=== PATIENT | female | born 1990 | race Caucasian/White ===

== ENCOUNTER 2016-10-21 20:31 | Emergency (ER) | payer OTHER ==
[2016-10-21] MEDS ORDERED: SODIUM CHLORIDE 0.9% 1,000 ML IV STA (22:24)
[2016-10-21] MEDS ORDERED: KETOROLAC 30 MG/ML 1 ML VIAL IVP STA (22:24)
--- NOTE | 2016-10-21 23:16 | US ---
EXAM: US Abdomen Limited, Right Upper Quadrant CLINICAL HISTORY: Reason: Pain TECHNIQUE: Real-time ultrasound of the right upper quadrant with image documentation. COMPARISON: None. FINDINGS: Liver: Unremarkable. No mass. No intrahepatic bile duct dilation. Gallbladder: Unremarkable. No gallstones. Common bile duct: Unremarkable as visualized. Measures up to 0.3 cm in diameter. No stones. Pancreas: Unremarkable as visualized. Right kidney: Measures 9.8 x 4.2 x 3.4 cm. No stones. No solid mass. No hydronephrosis. IMPRESSION: No acute findings.
[2016-10-21 23:25] LABS: Appearance,Urine Clear (Clear); Bacteria,Urine Rare /hpf; Bilirubin,Urine Negative (Negative); Glucose,Urine (UA) Negative (Negative); Ketones,Urine 2+ (Negative); Leukocyte Esterase,Urine Negative (Negative); Mucus,Urine Occasional /hpf; Nitrite,Urine Negative (Negative); Particle Count 3897; Protein,Urine Negative (Negative); RBC,Urine 3 /hpf (0-5); Specific Gravity,Urine 1.022 (1.001-1.035); Squamous Epithelial Cell,Urine 1 /hpf (0-4); UA Billing (MACRO vs. MICRO) MICRO; WBC,Urine <1 /hpf (0-5)
[2016-10-21 23:28] LABS: Basophils % (A) 1 %; CHCM 33.8; Eosinophils # (A) 0.2 k/uL (0-0.7); Eosinophils % (A) 3 %; HCT 35.3 % (34.0-46.0); HDW 2.29; HGB 12.1 gm/dL (11.4-16.0); Luc # (Auto) 0.13; Luc % (Auto) 2; Lymphocytes # (A) 1.7 k/uL (1.0-4.8); Lymphocytes % (A) 24 %; MCH 31.6 pg (25.0-35.0); MCHC 34.3 g/dL (31.0-37.0); MCV 92.1 fL (80.0-100.0); Mean Platelet Volume 7.6; Monocytes # (A) 0.5 k/uL (0-1.0); Monocytes % (A) 7 %; Neutrophils # (A) 4.5 k/uL (1.3-7.7); Neutrophils % (A) 64 %; RBC 3.84 m/uL (3.80-5.40); WBC (Perox) 6.66
[2016-10-21 23:45] VITALS: BP 119/75; PULSE 70; RESP 16; TEMP 98.5
[2016-10-21 23:45] LABS: ALT 25 U/L (9-52); AST 15 U/L (14-36); Alkaline Phosphatase 52 U/L (38-126); Amylase 35 U/L (30-110); Anion Gap 11 mmol/L; Blood Urea Nitrogen 11 mg/dL (7-17); Calcium 9.5 mg/dL (8.4-10.2); Carbon Dioxide 25 mmol/L (22-30); Chloride 106 mmol/L (98-107); Glucose 88 mg/dL (74-99); Non-African American GFR(MDRD) >60 (>60 ml/min/1.73 sqM); Potassium 3.9 mmol/L (3.5-5.1); Sodium 142 mmol/L (137-145); Total Bilirubin 0.7 mg/dL (0.2-1.3); Total Protein 6.6 g/dL (6.3-8.2)
--- NOTE | 2016-10-22 00:01 | ED ---
Abdominal Pain HPI - General Chief Complaint: Abdominal Pain Stated Complaint: abdominal pain Time Seen by Provider: 10/21/16 21:58 Source: patient Mode of arrival: ambulatory Limitations: no limitations - Related Data Home Medications Medication Instructions Recorded Confirmed Acetaminophen/Pamabrom [Midol 2 tab PO DAILY PRN 10/21/16 10/21/16 [place]] Previous Rx's Medication Instructions Recorded Famotidine [Pepcid] 20 mg PO BID #20 tablet 10/22/16 Allergies Allergy/AdvReac Type Severity Reaction Status Date / Time No Known Allergies Allergy Verified 10/21/16 22:03 Review of Systems ROS Statement: Those systems with pertinent positive or pertinent negative responses have been documented in the HPI. ROS Other: All systems not noted in ROS Statement are negative. Past Medical History Past Medical History: No Reported History History of Any Multi-Drug Resistant Organisms: None Reported Past Surgical History: No Surgical Hx Reported Past Psychological History: Anxiety Smoking Status: Never smoker Past Alcohol Use History: Rare Past Drug Use History: None Reported General Exam Limitations: no limitations Course Vital Signs 10/21/16 10/21/16 20:36 23:39 Temperature 99.1 F 98.5 F Pulse Rate 97 70 Respiratory 18 16 Rate Blood Pressure 120/72 119/75 O2 Sat by Pulse 100 100 Oximetry Medical Decision Making - Lab Data Result diagrams: 10/21/16 23:20 10/21/16 23:20 Lab Results 10/21/16 10/21/16 10/21/16 Range/Units 23:16 23:16 23:20 WBC (3.8-10.6) k/uL RBC (3.80-5.40) m/uL Hgb (11.4-16.0) gm/dL Hct (34.0-46.0) % MCV (80.0-100.0) fL MCH (25.0-35.0) pg MCHC (31.0-37.0) g/dL RDW (11.5-15.5) % Plt Count (150-450) k/uL Neutrophils % % Lymphocytes % % Monocytes % % Eosinophils % % Basophils % % Neutrophils # (1.3-7.7) k/uL Lymphocytes # (1.0-4.8) k/uL Monocytes # (0-1.0) k/uL Eosinophils # (0-0.7) k/uL Basophils # (0-0.2) k/uL Sodium 142 (137-145) mmol/L Potassium 3.9 (3.5-5.1) mmol/L Chloride 106 (98-107) mmol/L Carbon Dioxide 25 (22-30) mmol/L Anion Gap 11 mmol/L BUN 11 (7-17) mg/dL Creatinine 0.70 (0.52-1.04) mg/dL Est GFR (MDRD) Af Amer >60 (>60 ml/min/1.73 sqM) Est GFR (MDRD) Non-Af >60 (>60 ml/min/1.73 sqM) Glucose 88 (74-99) mg/dL Calcium 9.5 (8.4-10.2) mg/dL Total Bilirubin 0.7 (0.2-1.3) mg/dL AST 15 (14-36) U/L ALT 25 (9-52) U/L Alkaline Phosphatase 52 (38-126) U/L Total Protein 6.6 (6.3-8.2) g/dL Albumin 4.1 (3.5-5.0) g/dL Amylase 35 (30-110) U/L Lipase 131 (23-300) U/L Urine Color Yellow Urine Appearance Clear (Clear) Urine pH 5.0 (5.0-8.0) Ur Specific [place] 1.022 (1.001-1.035) Urine Protein Negative (Negative) Urine Glucose (UA) Negative (Negative) Urine Ketones 2+ H (Negative) Urine Blood Moderate H (Negative) Urine Nitrite Negative (Negative) Urine Bilirubin Negative (Negative) Urine Urobilinogen 2.0 (<2.0) mg/dL Ur Leukocyte Esterase Negative (Negative) Urine RBC 3 (0-5) /hpf Urine WBC <1 (0-5) /hpf Ur Squamous Epith Cells 1 (0-4) /hpf Urine Bacteria Rare H (None) /hpf Urine Mucus Occasional H (None) /hpf Urine HCG, Qual Not Detected (Not Detectd) 10/21/16 Range/Units 23:20 WBC 7.0 (3.8-10.6) k/uL RBC 3.84 (3.80-5.40) m/uL Hgb 12.1 (11.4-16.0) gm/dL Hct 35.3 (34.0-46.0) % MCV 92.1 (80.0-100.0) fL MCH 31.6 (25.0-35.0) pg MCHC 34.3 (31.0-37.0) g/dL RDW 13.0 (11.5-15.5) % Plt Count 185 (150-450) k/uL Neutrophils % 64 % Lymphocytes % 24 % Monocytes % 7 % Eosinophils % 3 % Basophils % 1 % Neutrophils # 4.5 (1.3-7.7) k/uL Lymphocytes # 1.7 (1.0-4.8) k/uL Monocytes # 0.5 (0-1.0) k/uL Eosinophils # 0.2 (0-0.7) k/uL Basophils # 0.0 (0-0.2) k/uL Sodium (137-145) mmol/L Potassium (3.5-5.1) mmol/L Chloride (98-107) mmol/L Carbon Dioxide (22-30) mmol/L Anion Gap mmol/L BUN (7-17) mg/dL Creatinine (0.52-1.04) mg/dL Est GFR (MDRD) Af Amer (>60 ml/min/1.73 sqM) Est GFR (MDRD) Non-Af (>60 ml/min/1.73 sqM) Glucose (74-99) mg/dL Calcium (8.4-10.2) mg/dL Total Bilirubin (0.2-1.3) mg/dL AST (14-36) U/L ALT (9-52) U/L Alkaline Phosphatase (38-126) U/L Total Protein (6.3-8.2) g/dL Albumin (3.5-5.0) g/dL Amylase (30-110) U/L Lipase (23-300) U/L Urine Color Urine Appearance (Clear) Urine pH (5.0-8.0) Ur Specific [place] (1.001-1.035) Urine Protein (Negative) Urine Glucose (UA) (Negative) Urine Ketones (Negative) Urine Blood (Negative) Urine Nitrite (Negative) Urine Bilirubin (Negative) Urine Urobilinogen (<2.0) mg/dL Ur Leukocyte Esterase (Negative) Urine RBC (0-5) /hpf Urine WBC (0-5) /hpf Ur Squamous Epith Cells (0-4) /hpf Urine Bacteria (None) /hpf Urine Mucus (None) /hpf Urine HCG, Qual (Not Detectd) Disposition Clinical Impression: Abdominal pain Disposition: HOME SELF-CARE Condition: Good Instructions: Abdominal Pain (ED) Additional Instructions: Patient advised to follow-up with her primary care provider and GI specialist. Return to the emergency department if any alarming signs or symptoms occur. Prescriptions: Famotidine [Pepcid] 20 mg PO BID #20 tablet Referrals: Chris Martinez MD [Primary Care Provider] - 1-2 days Time of Disposition: 00:01
== END 2016-10-22 00:33 | disposition home or self-care (01) ==
LOC: EC 20:31
DX: R10.9 Unspecified abdominal pain (principal)
CPT/HCPCS: 36415; 80053; 82150; 83690; 85025; 81001; 81025; 76705; 99284; 96374; 96361; J1885

== ENCOUNTER 2016-11-25 12:42 | Emergency (ER) | payer OTHER ==
[2016-11-25 12:46] VITALS: RESP 20
[2016-11-25 15:00] LABS: Basophils % (A) 0 %; CH 32.1; Eosinophils # (A) 0.1 k/uL (0-0.7); Eosinophils % (A) 1 %; HCT 41.6 % (34.0-46.0); HDW 2.33; HGB 13.8 gm/dL (11.4-16.0); Luc # (Auto) 0.13; Luc % (Auto) 2; Lymphocytes # (A) 1.1 k/uL (1.0-4.8); Lymphocytes % (A) 13 %; MCH 31.5 pg (25.0-35.0); MCHC 33.3 g/dL (31.0-37.0); MCV 94.7 fL (80.0-100.0); Mean Platelet Volume 7.9; Monocytes # (A) 0.4 k/uL (0-1.0); Monocytes % (A) 5 %; Neutrophils # (A) 6.6 k/uL (1.3-7.7); Neutrophils % (A) 79 %; RBC 4.39 m/uL (3.80-5.40); WBC 8.3 k/uL (3.8-10.6); WBC (Perox) 7.97
[2016-11-25 15:10] LABS: ALT 23 U/L (9-52); AST 20 U/L (14-36); Alkaline Phosphatase 61 U/L (38-126); Amylase 39 U/L (30-110); Anion Gap 15 mmol/L; Blood Urea Nitrogen 11 mg/dL (7-17); Calcium 9.6 mg/dL (8.4-10.2); Carbon Dioxide 22 mmol/L (22-30); Chloride 102 mmol/L (98-107); Glucose 66 mg/dL (74-99); Non-African American GFR(MDRD) >60 (>60 ml/min/1.73 sqM); Potassium 4.5 mmol/L (3.5-5.1); Sodium 139 mmol/L (137-145); Total Bilirubin 0.9 mg/dL (0.2-1.3); Total Protein 7.8 g/dL (6.3-8.2)
[2016-11-25 15:18] LABS: Appearance,Urine Clear (Clear); Bilirubin,Urine Negative (Negative); Glucose,Urine (UA) Negative (Negative); Ketones,Urine 3+ (Negative); Leukocyte Esterase,Urine Negative (Negative); Mucus,Urine Rare /hpf; Nitrite,Urine Negative (Negative); Particle Count 1760; Protein,Urine Negative (Negative); RBC,Urine 4 /hpf (0-5); Specific Gravity,Urine 1.005 (1.001-1.035); Squamous Epithelial Cell,Urine <1 /hpf (0-4); UA Billing (MACRO vs. MICRO) MICRO; Urobilinogen,Urine <2.0 mg/dL (<2.0); WBC,Urine <1 /hpf (0-5)
--- NOTE | 2016-11-25 15:41 | XR ---
EXAMINATION TYPE: XR KUB DATE OF EXAM: 11/25/2016 3:34 PM CLINICAL HISTORY: Abdominal pain TECHNIQUE: Single upright image of the abdomen is obtained. COMPARISON: 09/19/2014. FINDINGS: Scattered gas is seen in non-distended small bowel loops. Gas and fecal material is seen in non-distended colon. The liver is elongated and may relate to Jhoana's lobe or true hepatomegaly. No evidence of pneumoperitoneum. The lung bases are clear and the osseous structures are intact. IMPRESSION: Nonobstructive bowel gas pattern.
--- NOTE | 2016-11-25 16:12 | ED ---
Abdominal Pain HPI - General Chief Complaint: Abdominal Pain Stated Complaint: Abd Pain Time Seen by Provider: 11/25/16 14:41 Source: patient, RN notes reviewed, old records reviewed Mode of arrival: ambulatory Limitations: no limitations - History of Present Illness Initial Comments: Physically 25-year-old female chief complaint of constipation-like symptoms for the past month and a half. Patient reports that she has been having to use stool softeners to have a bowel movement as well as using magnesium citrate. Patient reports she is magnesium citrate yesterday, did have a bowel movement earlier today. She reports that she is passing gas but has not passed anything today. Patient states that she had an episode of vomiting which she relates to drinking the magnesium citrate. Patient states that she's had no blood in her emesis today. Denies patient reports that she had a slight fever yesterday, but did take some Motrin Tylenol and is gone at this time. Denies any other symptoms or complaints to cause a fever. Patient reports that yesterday she was in such severe abdominal pain before having a bowel movement, she thought that she perforated her bowel. - Related Data Home Medications Medication Instructions Recorded Confirmed Acetaminophen Tab [Tylenol Tab] 650 mg PO Q6H PRN 11/25/16 11/25/16 Previous Rx's Medication Instructions Recorded Polyethylene Glycol 3350 [Miralax] 17 gm PO DAILY #255 gm 11/25/16 Allergies Allergy/AdvReac Type Severity Reaction Status Date / Time No Known Allergies Allergy Verified 11/25/16 14:37 Review of Systems ROS Statement: Those systems with pertinent positive or pertinent negative responses have been documented in the HPI. ROS Other: All systems not noted in ROS Statement are negative. Past Medical History Past Medical History: No Reported History History of Any Multi-Drug Resistant Organisms: None Reported Past Surgical History: No Surgical Hx Reported Past Psychological History: Anxiety Smoking Status: Never smoker Past Alcohol Use History: Rare Past Drug Use History: None Reported General Exam - General Exam Comments Initial Comments: Well-appearing 25-year-old female. No acute distress. Limitations: no limitations General appearance: alert, in no apparent distress Head exam: Present: atraumatic, normocephalic, normal inspection Eye exam: Present: normal appearance, PERRL, EOMI. Absent: scleral icterus, conjunctival injection, periorbital swelling ENT exam: Present: normal exam, mucous membranes moist Neck exam: Present: normal inspection. Absent: tenderness, meningismus, lymphadenopathy Respiratory exam: Present: normal lung sounds bilaterally. Absent: respiratory distress, wheezes, rales, rhonchi, stridor Cardiovascular Exam: Present: regular rate, normal rhythm, normal heart sounds. Absent: systolic murmur, diastolic murmur, rubs, gallop, clicks GI/Abdominal exam: Present: soft, tenderness (minimal tenderness over left lower quadrant. ), normal bowel sounds. Absent: distended, guarding, rebound, rigid Extremities exam: Present: normal inspection, full ROM, normal capillary refill. Absent: tenderness, pedal edema, joint swelling, calf tenderness Back exam: Present: normal inspection Neurological exam: Present: alert, oriented X3, CN II-XII intact Psychiatric exam: Present: normal affect, normal mood Skin exam: Present: warm, dry, intact, normal color. Absent: rash Course Vital Signs 11/25/16 11/25/16 11/25/16 12:45 14:28 16:46 Temperature 98.5 F 97.0 F L 97.7 F Pulse Rate 94 84 83 Respiratory 20 20 20 Rate Blood Pressure 127/76 111/67 108/59 O2 Sat by Pulse 99 100 99 Oximetry Medical Decision Making - Medical Decision Making Physically 25-year-old female chief complaint of constipation-like symptoms for the past month and a half. Patient reports that she has been having to use stool softeners to have a bowel movement as well as using magnesium citrate. Patient reports she is magnesium citrate yesterday, did have a bowel movement earlier today. She reports that she is passing gas but has not passed anything today. Patient states that she had an episode of vomiting which she relates to drinking the magnesium citrate. On further questioning patient states that she saw her PCP and was told she has irritible bowel syndrome. Patient reports she was concerned of the severe pain and history of constipation, that she became so full of stool that she perforated her bowel beofre having a bowel movement. On exam, she has no rebound or peritoneal signs. Patient lab work was reviewed, negative for any acute process. Patient KUB has no free air, normal bowel gas. No significant stool burden. Patient was advised she has no bowel perforation signs and she is stable. Patient has been advised that she needs to resume a diet, but to start miralax each day. Discussed follow up with PCP and GI. REturn parameters discussed. - Lab Data Result diagrams: 11/25/16 14:43 11/25/16 14:43 Lab Results 11/25/16 11/25/16 11/25/16 Range/Units 14:43 14:43 14:50 WBC 8.3 (3.8-10.6) k/uL RBC 4.39 (3.80-5.40) m/uL Hgb 13.8 (11.4-16.0) gm/dL Hct 41.6 (34.0-46.0) % MCV 94.7 (80.0-100.0) fL MCH 31.5 (25.0-35.0) pg MCHC 33.3 (31.0-37.0) g/dL RDW 14.0 (11.5-15.5) % Plt Count 214 (150-450) k/uL Neutrophils % 79 % Lymphocytes % 13 % Monocytes % 5 % Eosinophils % 1 % Basophils % 0 % Neutrophils # 6.6 (1.3-7.7) k/uL Lymphocytes # 1.1 (1.0-4.8) k/uL Monocytes # 0.4 (0-1.0) k/uL Eosinophils # 0.1 (0-0.7) k/uL Basophils # 0.0 (0-0.2) k/uL Sodium 139 (137-145) mmol/L Potassium 4.5 (3.5-5.1) mmol/L Chloride 102 (98-107) mmol/L Carbon Dioxide 22 (22-30) mmol/L Anion Gap 15 mmol/L BUN 11 (7-17) mg/dL Creatinine 0.74 (0.52-1.04) mg/dL Est GFR (MDRD) Af Amer >60 (>60 ml/min/1.73 sqM) Est GFR (MDRD) Non-Af >60 (>60 ml/min/1.73 sqM) Glucose 66 L (74-99) mg/dL Calcium 9.6 (8.4-10.2) mg/dL Total Bilirubin 0.9 (0.2-1.3) mg/dL AST 20 (14-36) U/L ALT 23 (9-52) U/L Alkaline Phosphatase 61 (38-126) U/L Total Protein 7.8 (6.3-8.2) g/dL Albumin 4.7 (3.5-5.0) g/dL Amylase 39 (30-110) U/L Lipase 114 (23-300) U/L Urine Color Urine Appearance (Clear) Urine pH (5.0-8.0) Ur Specific [place] (1.001-1.035) Urine Protein (Negative) Urine Glucose (UA) (Negative) Urine Ketones (Negative) Urine Blood (Negative) Urine Nitrite (Negative) Urine Bilirubin (Negative) Urine Urobilinogen (<2.0) mg/dL Ur Leukocyte Esterase (Negative) Urine RBC (0-5) /hpf Urine WBC (0-5) /hpf Ur Squamous Epith Cells (0-4) /hpf Urine Mucus (None) /hpf Urine HCG, Qual Not Detected (Not Detectd) 11/25/16 Range/Units 14:50 WBC (3.8-10.6) k/uL RBC (3.80-5.40) m/uL Hgb (11.4-16.0) gm/dL Hct (34.0-46.0) % MCV (80.0-100.0) fL MCH (25.0-35.0) pg MCHC (31.0-37.0) g/dL RDW (11.5-15.5) % Plt Count (150-450) k/uL Neutrophils % % Lymphocytes % % Monocytes % % Eosinophils % % Basophils % % Neutrophils # (1.3-7.7) k/uL Lymphocytes # (1.0-4.8) k/uL Monocytes # (0-1.0) k/uL Eosinophils # (0-0.7) k/uL Basophils # (0-0.2) k/uL Sodium (137-145) mmol/L Potassium (3.5-5.1) mmol/L Chloride (98-107) mmol/L Carbon Dioxide (22-30) mmol/L Anion Gap mmol/L BUN (7-17) mg/dL Creatinine (0.52-1.04) mg/dL Est GFR (MDRD) Af Amer (>60 ml/min/1.73 sqM) Est GFR (MDRD) Non-Af (>60 ml/min/1.73 sqM) Glucose (74-99) mg/dL Calcium (8.4-10.2) mg/dL Total Bilirubin (0.2-1.3) mg/dL AST (14-36) U/L ALT (9-52) U/L Alkaline Phosphatase (38-126) U/L Total Protein (6.3-8.2) g/dL Albumin (3.5-5.0) g/dL Amylase (30-110) U/L Lipase (23-300) U/L Urine Color Light Yellow Urine Appearance Clear (Clear) Urine pH 5.0 (5.0-8.0) Ur Specific [place] 1.005 (1.001-1.035) Urine Protein Negative (Negative) Urine Glucose (UA) Negative (Negative) Urine Ketones 3+ H (Negative) Urine Blood Moderate H (Negative) Urine Nitrite Negative (Negative) Urine Bilirubin Negative (Negative) Urine Urobilinogen <2.0 (<2.0) mg/dL Ur Leukocyte Esterase Negative (Negative) Urine RBC 4 (0-5) /hpf Urine WBC <1 (0-5) /hpf Ur Squamous Epith Cells <1 (0-4) /hpf Urine Mucus Rare H (None) /hpf Urine HCG, Qual (Not Detectd) - Radiology Data Radiology results: report reviewed KUB shows no acute abdominal pattern. Disposition Clinical Impression: History of irritable bowel syndrome, Constipation Disposition: HOME SELF-CARE Condition: Good Instructions: Irritable Bowel Syndrome (ED) Additional Instructions: Patient is follow-up with primary care provider. Take medications as prescribed. Return to emergency department if any alarming signs or symptoms occur. Prescriptions: Polyethylene Glycol 3350 [Miralax] 17 gm PO DAILY #255 gm Referrals: Chris Martinez MD [Primary Care Provider] - 1-2 days Rafael Nieves MD [STAFF PHYSICIAN] - 1-2 days Time of Disposition: 16:48
[2016-11-25 16:47] VITALS: BP 108/59; PULSE 83; TEMP 97.7
== END 2016-11-25 17:09 | disposition home or self-care (01) ==
LOC: EC 12:42
DX: K59.00 Constipation, unspecified (principal); K58.9 Irritable bowel syndrome, unspecified; R11.10 Vomiting, unspecified
CPT/HCPCS: 36415; 74000; 80053; 81001; 81025; 82150; 83690; 85025; 99284

== ENCOUNTER → 2022-08-05 | Outpatient (CLI) | payer BC ==
[2022-08-05 15:51] LABS: HCT 33.9 % (37.2-46.3); HGB 11.1 g/dL (12.0-15.0); MCH 32.4 pg (27.0-32.0); MCHC 32.7 g/dL (32.0-37.0); MCV 98.8 fL (80.0-97.0); Mean Platelet Volume 10.6 fL (9.5-12.2); NRBC Per 100 WBC 0 /100 WBCS (0.0-0.0); Platelet Count 188 X 10*3/uL (140-440); RBC 3.43 X 10*6/uL (4.10-5.20); RDW 14.5 % (11.5-14.5); WBC 9.47 X 10*3/uL (4.50-10.00)
== END | disposition home or self-care (01) ==
LOC: LABWHC1 09:25
PROVIDERS: ATTEND Obstetrics & Gynecology
DX: Z34.02 Encounter for supervision of normal first pregnancy, second trimester (principal); Z3A.00 Weeks of gestation of pregnancy not specified
CPT/HCPCS: 36415; 82950; 85027

== ENCOUNTER 2022-10-14 11:01 | Inpatient (IN) | payer BC ==
--- NOTE | 2022-10-14 13:00 | US ---
EXAMINATION TYPE: US OB BPP wo non-stress DATE OF EXAM: 10/14/2022 COMPARISON: NONE CLINICAL INDICATION: Female, 31 years old with history of oligo, failed NST in office; failed NST TECHNIQUE: Transabdominal (TA). Scoring by the consumer affairs director during real-time assessment. FINDINGS: BPP PARAMETERS: PRESENTATION: Vertex LIE: Longitudinal?? HEART RATE: 140 bpm RHYTHM: Normal CECILIO: 28.7cm (per patient: CECILIO measured as 36cm in office today, was 24 cm 2 weeks ago) DIAPHRAGM IMAGED: Yes BPP SCORIN. Breathin (1 episode of breathing of 30 second duration in 30 minutes of scanning time) 2. Movement: 2 (at least 3 discrete body movements in 30 minutes) 3. Tone: 2 (1 episode of active flexion/extension of limb) 4. CECILIO: 2 (CECILIO index > 5cm) IMPRESSION: TOTAL SCORE: 6 / 8
[2022-10-14] MEDS: BETAMET ACET-BETAMETH SOD PHOS 6 MG/ML MDV IM SCH (13:14)
--- NOTE | 2022-10-14 17:55 | P.HPOB ---
History of Present Illness H&P Date: 10/14/22 Chief Complaint: Polyhydramnios, equivocal testing This patient is a pleasant 31-year-old 1 para 0 female estimated date of confinement 11/12/2022 estimated gestational age 35-6/7 weeks who presents to labor and delivery from my office for evaluation of polyhydramnios. 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 Father the baby does have cystic fibrosis. Patient was sent to maternal- medicine for consultation and at that time the level III ultrasound was normal, the mother's tested and she is not a carrier cystic fibrosis. Also the patient is a carrier of SMA although the father is not a carrier. Maternal medicine recommended serial growth ultrasounds and testing. Patient had an ultrasound done today in the office that showed the amniotic fluid index of 36. I sent the patient to labor and delivery and nonstress test was done which was reassuring but not classically reactive. Biophysical profile was 6 out of 10 with no breathing movement. This time I contacted Dr. Swan the maternal medicine physician and we discussed the clinical case. He recommended admitting this patient for steroid administration, continuous monitoring and repeat biophysical profile tomorrow morning. He recommended if testing continued to be equivocal to proceed with delivery at that time. Review of Systems Genitourinary: Reports Menstruation: Reports amenorrhea Past Medical History Past Medical History: No Reported History History of Any Multi-Drug Resistant Organisms: None Reported Past Surgical History: No Surgical Hx Reported Past Anesthesia/Blood Transfusion Reactions: No Reported Reaction Past Psychological History: Anxiety Smoking Status: Never smoker Past Alcohol Use History: Rare Past Drug Use History: None Reported Medications and Allergies Home Medications Medication Instructions Recorded Confirmed Type Doxylamine Succinate [Unisom] 1 tablet PO DAILY 07/29/22 07/29/22 History Vit No.179/Iron/Folic 1 tablet PO DAILY 07/29/22 07/29/22 History [ Tablet] Allergies Allergy/AdvReac Type Severity Reaction Status Date / Time No Known Allergies Allergy Verified 07/29/22 18:00 Exam Vital Signs Temp Pulse Resp BP Pulse Ox 10/14/22 13:06 97.4 F L 82 16 135/89 100 Intake and Output 10/14/22 10/14/22 10/14/22 06:59 14:59 22:59 Other: # Voids 1 Weight 70.307 kg - OBG Physical Exam Abdomen: bowel sounds normal, no diffuse tenderness, no bruit present, no guarding noted, no hepatomegaly, no splenomegaly, no mass Uterus: enlarged Results labs show she is A positive, rubella immune, RPR nonreactive, hepatitis B and C nonreactive, HIV is nonreactive, Glucola was 113, level III ultrasound per maternal- medicine was normal. Assessment and Plan Assessment: This is a pleasant 31-year-old 1 para 0 female estimated gestational age 35-6/7 weeks gestation with polyhydramnios and equivocal antepartum testing. Per consultation with maternal- medicine, plan is to admit this patient for continuous monitoring, Celestone administration and repeat biophysical profile tomorrow morning. Plan at that time is if the testing is still equivocal to proceed with delivery. Maternal medicine said not to wait for the second Celestone dose if that is the case. If testing is all reassuring, patient be discharged home after her second Celestone dose follow-up maternal- medicine on Monday. I had a long discussion with the patient and her as far as this plan. They understand our clinical concerns and management. (1) 35 to 36 weeks gestation of Current Visit: Yes Status: Acute Code(s): BHK4989 - SNOMED Code(s): 894401017 (2) Abnormal test Current Visit: Yes Status: Acute Code(s): O28.9 - UNSP ABNORMAL FINDINGS ON SCREENING OF MOTHER SNOMED Code(s): 854171233 (3) Polyhydramnios affecting Current Visit: Yes Status: Acute Code(s): O40.9XX0 - POLYHYDRAMNIOS, UNSP TRIMESTER, NOT APPLICABLE OR UNSP SNOMED Code(s): 65567412
--- NOTE | 2022-10-15 07:10 | P.PN ---
Progress Note - Text Progress Note Date: 10/15/22 Patient rested overnight without complaints. heart tones are category 1 with occasional variable decelerations that are mild. Plan today is to check a repeat biophysical profile per MFM recommendations. If this is normal, she'll be discharged home after her second Celestone injection 1:00 to follow up with MFM on Monday. If the biophysical 6 out of 8 then were proceed with Cervidil induction of labor.
--- NOTE | 2022-10-15 07:58 | P.MSEPDOC ---
Presenting Problems - Arrival Data Date of Arrival on Unit: 10/14/22 Time of Arrival on Unit: 11:01 Mode of Transport: Ambulatory - Complaint OB-Reason for Admission/Chief Complaint: Other Comment: Patient sent from Dr Prieto's officec for prolonged monitoring and a BPP Medical History - Information : 1 Para: 0 Term: 0 : 0 Abortions: Spontaneous or Elective: 0 Number of Living Children: 0 - Gestational Age Gestational Age by SHIVAM (wks/days): 35 Weeks and 6 Days Review of Systems - Review of Systems Constitutional: No problems Breast: No problems ENT: No problems Cardiovascular: No problems Respiratory: No problems Gastrointestinal: No problems Genitourinary: No problems Musculoskeletal: No problems Neurological: No problems Skin: No problems Vital Signs - Temperature Temperature: 96.9 F Temperature Source: Temporal Artery Scan - Pulse Right Sitting Pulse Rate: 82 Pulse Assessment Method: Pulse Oximetry - Respirations Respiratory Rate: 16 O2 Sat by Pulse Oximetry: 97 - Blood Pressure Right Arm Sitting Blood Pressure: 139/86 Blood Pressure Mean: 103 Blood Pressure Source: Automatic Cuff Medical Screen Scoring - Assessment - Baby A Baseline FHR: 140 Heart Rate - NICHD Category: Category I (Normal) NST: Reactive Physician Notification - Physician Notified Physician Notified Date: 10/14/22 Physician Notified Time: 12:40 Physician: Ida New Order Received: Yes - Notification Comment Comment: Patient is being admitted as OBV, celestone now and then in 24 hours, continuous monitoring ordered Maternal Triage Index - Maternal Triage Index Presenting for scheduled procedure w/no complaint: No - Stat/Priority 1 Stat Priority 1: No - Urgent/Priority 2 Urgent Priority 2: No - Prompt/Priority 3 Prompt Priority 3: No - Non-Urgent/Priority 4 Non-Urgent Priority 4: Yes Criteria Met for Priority 4: Dr Prieto sent patient from office for prolonged monitoring and a BPP Disposition - Disposition OB Disposition: Observe I agree with the RN Medical Screening Exam: Yes Case reviewed; plan agreed upon as documented in EMR&OBIX.: Yes Diagnosis: RELATED CONDITIONS, UNSPECIFIED, THIRD TRIMESTER
--- NOTE | 2022-10-15 08:32 | US ---
EXAMINATION TYPE: US OB BPP wo non-stress DATE OF EXAM: 10/15/2022 COMPARISON: Ultrasound OB BPP 10/14/2022 CLINICAL INDICATION: Female, 31 years old with history of Non-reactive nonstress test. Previous abn BPP; 09/15 BPP yesterday, no breathing detected at that time, patient has since had steroid shot TECHNIQUE: Transabdominal (TA). Scoring by the regional company truck driver during real-time assessment. FINDINGS: BPP PARAMETERS: PRESENTATION: Vertex LIE: Longitudinal?? HEART RATE: 144 bpm RHYTHM: Normal CECILIO: 27.7 DIAPHRAGM IMAGED: yes BPP SCORIN. Breathin (1 episode of breathing of 30 second duration in 30 minutes of scanning time) 2. Movement: 2 (at least 3 discrete body movements in 30 minutes) 3. Tone: 2 (1 episode of active flexion/extension of limb) 4. CECILIO: 2 (CECILIO index > 5cm) IMPRESSION: TOTAL SCORE: 8 / 8
[2022-10-15] MEDS ORDERED: CARBOPROST TROMETHAMINE 250 MCG/ML 1 ML AMP IM PRN (12:46)
[2022-10-15] MEDS ORDERED: TERBUTALINE 1 MG/ML VIAL SQ PRN (12:46)
[2022-10-15] MEDS ORDERED: METHYLERGONOVINE 0.2 MG/ML 1 ML AMP IM PRN (12:46)
[2022-10-15] MEDS ORDERED: AMPICILLIN 2,000 MG in SODIUM CHLORIDE 0.9% 100 ML IVPB STA (12:46)
[2022-10-15] MEDS ORDERED: LIDOCAINE 0.5% (PF) 5 MG/ML (50 ML SDV) SQ PRN (12:46)
[2022-10-15] MEDS ORDERED: miSOPROStoL 200 MCG TAB PO PRN (12:46)
[2022-10-15] MEDS ORDERED: OXYTOCIN 10 UNIT/ML 1 ML VIAL IM PRN (12:46)
[2022-10-15] MEDS ORDERED: TRANEXAMIC 1,000 MG/100ML-NACL 1,000 MG in EMPTY BAG 1 BAG IV PRN (12:46)
--- NOTE | 2022-10-15 12:46 | P.PN ---
Progress Note - Text Progress Note Date: 10/15/22 Patient's biophysical profile was scored as a 8 out of 8 however the tech was only able to see one breathing movement and a 30 minute period. heart tones are reassuring but not reactive and does have decreased variability. She is having occasional mild variable decelerations. I discussed management at this point with the patient and per my discussion with maternal medicine the recommendation is to proceed with induction/delivery secondary to equivocal testing. I discussed the benefits and risks of this with the patient including the risk of prematurity versus prolonging the and risk of stillborn or poor outcome. After discussion with the patient and her we elected proceed with induction of labor at this time. She understands that she is unfortunately at increased risk of a malpresentation or cord prolapse due to the severe polyhydramnios. She understands this would require emergent section.
[2022-10-15] MEDS ORDERED: LACTATED RINGERS 1,000 ML IV SCH (13:00)
[2022-10-15] MEDS ORDERED: OXYTOCIN 30 UNITS/500 ML NS 30 UNIT in SALINE 1 500ML.BAG IV SCH ×2 (13:00→16:00)
[2022-10-15 13:12] LABS: Basophils % (A) 0 %; Eosinophils # (A) 0.1 k/uL (0-0.7); Eosinophils % (A) 1 %; HCT 37.8 % (34.0-46.0); HGB 12.4 gm/dL (11.4-16.0); Lymphocytes # (A) 1.8 k/uL (1.0-4.8); Lymphocytes % (A) 11 %; MCH 32.7 pg (25.0-35.0); MCHC 32.7 g/dL (31.0-37.0); Mean Platelet Volume 10.6; Monocytes # (A) 1.1 k/uL (0-1.0); Monocytes % (A) 7 %; Neutrophils # (A) 13.6 k/uL (1.3-7.7); Neutrophils % (A) 81 %; Platelet Count 193 k/uL (150-450); RBC 3.78 m/uL (3.80-5.40); WBC 16.9 k/uL (3.8-10.6)
[2022-10-15] MEDS: BETAMET ACET-BETAMETH SOD PHOS 6 MG/ML MDV IM SCH (13:26)
[2022-10-15] MEDS ORDERED: LANOLIN CREAM 5 GM TUBE TOPICAL PRN (15:48)
[2022-10-15] MEDS ORDERED: diphenhydrAMINE 50 MG/ML 1 ML VIAL IVP PRN (15:48)
[2022-10-15] MEDS ORDERED: NALOXONE 0.4 MG/ML 1 ML VIAL IV PRN (15:48)
[2022-10-15] MEDS ORDERED: ZOLPIDEM 5 MG TAB PO PRN (15:48)
[2022-10-15] MEDS ORDERED: METOCLOPRAMIDE 5 MG/ML 2 ML VIAL IVP PRN (15:48)
[2022-10-15] MEDS ORDERED: ONDANSETRON 4 MG/2 ML VIAL IVP PRN (15:48)
[2022-10-15] MEDS ORDERED: diphenhydrAMINE 25 MG CAP PO PRN (15:48)
[2022-10-15] MEDS ORDERED: SIMETHICONE 80 MG CHEWABLE PO PRN (15:48)
--- NOTE | 2022-10-15 16:10 | P.OP ---
Date of Procedure: 10/15/22 Preoperative Diagnosis: #1: 36-0/7 week intrauterine . #2: Severe polyhydramnios. #3: Equivocal testing. #4: Category 2 heart tones remote from delivery Postoperative Diagnosis: #1: Same Procedure(s) Performed: Emergent primary low transverse section Anesthesia: spinal Surgeon: Mao Prieto Needle Polisher #1: Alicia Roe Estimated Blood Loss (ml): 600 Pathology: other (Placenta) Condition: stable Disposition: floor Indications for Procedure: Please see dictated H&P for intimate details of this patient's admission. Brief summary this is a pleasant 31-year-old 1 para 0 female estimated gestational age 36 weeks was admitted yesterday for nonreactive nonstress test and equivocal testing (biophysical of 6 out of 8). I counseled to maternal- medicine because co-caring for this patient. Recommendations were to do continuous monitoring and repeat biophysical profile this morning. heart tones continued to be nonreactive although there were no concerning decelerations. Repeat biophysical profile was 8 out of 8, however there was only 1 episode of bradycardia episode in a 30 minute period. Patient continued to have concerning heart tone monitoring with some mild variable decelerations and minimal variability. At this time I recommended the patient proceed with induction of labor per [facility] recommendations. Patient was given IV antibiotic due to unknown group B strep status. She was 2 cm dilated and gently we had artificial rupture membranes for a very large amount of amniotic fluid. Initially heart tones were reassuring however with contractions she began having bradycardic episodes. Usual resuscitative measures were done. Patient began having severe bradycardia to the 50s with each contraction. Despite the usual resuscitative measures, these did not resolve. Category II FHT managed following algorithm including initiation of corrective measure. With the persistent presence of bradycardia, a patient-centered huddle was held and the need for an expedited deliver was discussed with the patient. It is our clinical recommendation to proceed with the delivery and after questions were answered to the patient agrees to proceed with the recommended plan. Operative Findings: This is a vigorous viable male Apgars 7 and 8 delivery time was 1513 hrs. Infant has spontaneous respirations and good cry and grossly appeared normal. The umbilical cord had a very tortuous orientation throughout. Description of Procedure: This patient has a Payne catheter placed to straight drain. She is quickly taken to the operating room where heart tones are monitored and they returned to 130s 140s. She does have a couple other episodes of bradycardia Han in the operating room but these resolved with position change. Patient sat up and spinal anesthetic is administered without incident. She then has abdominal prep and drape. The appropriate timeout is done. With an adequate level of anesthesia, a scalpel is taken and a Pfannenstiel skin incision is made. A second scalpel is taken down the fascia the fascia scored with a scalpel. Fascial incision extended bilaterally using the Olson scissors. Fascia is dissected off the rectus muscles sharply. Rectus muscles are the peritoneum identified and entered sharply. Peritoneal incision is extended meza perior and inferiorly without difficulty. Bladder blade is then placed. Bladder peritoneum was then taken sharply off the lower uterine segment. Scalpels and taken low transverse uterine incision is then made. Using a hemostat I enter the uterine cavity bluntly is loss of clear fluid. Incision is extended bluntly. Infant's head is then guided through the incision with fundal pressure. Mouth and nares are bulb suctioned. There is no evidence of a nuchal cord. With more fundal pressure with delivery of the rest this 's body. Some vigorous viable male infant Apgars are 7 and 8 delivery time is 1513 hrs. The umbilical cord appears to be very tortuous. It is doubly clamped and cut and the is handed off to the nurses in attendance. The placenta is then manually extracted intact. Uterus is then externalized and uterine incision demarcated with Martin clamps. Uterine incision then closed using 0 Vicryl running locked fashion. Hemostasis is noted. Excess fluid is removed from the abdomen and pelvis. Uterus placed back into the abdomen. The parietal peritoneum was then closed using 0 Vicryl running fashion. Rectus muscles are reapproximated using 0 Vicryl interrupted fashion. Fascial incision then closed using 0 PDS in running fashion. Fascial incision is intact and hemostatic. Subcutaneous tissues then closed using a 3-0 Vicryl running fashion skin is and closed using ann. All counts are correct 3. There are no complications. and mother taken the birthing suite in satisfactory condition.
[2022-10-15] MEDS ORDERED: AMPICILLIN 1,000 MG in SODIUM CHLORIDE 0.9% 50 ML IVPB SCH (17:00)
[2022-10-15] MEDS: ACETAMINOPHEN TAB 500 MG TAB PO SCH (20:38)
[2022-10-15] MEDS: SENNOSIDES-DOCUSATE SODIUM 1 EACH TAB PO SCH (20:40)
[2022-10-15] MEDS: LACTATED RINGERS 1,000 ML IV SCH (20:58)
[2022-10-15 21:20] LABS: Uric Acid 5.9 mg/dL (3.7-7.4)
[2022-10-15] MEDS: LABETALOL 100 MG TAB PO SCH (21:39)
[2022-10-15] MEDS: IBUPROFEN 600 MG TAB PO SCH (23:27)
[2022-10-15] MEDS: KETOROLAC 15 MG/ML 1 ML VIAL IVP SCH (23:46)
[2022-10-16] MEDS: LACTATED RINGERS 1,000 ML IV SCH (03:00)
[2022-10-16] MEDS: ACETAMINOPHEN TAB 500 MG TAB PO SCH ×5 (03:05→23:24)
[2022-10-16] MEDS: IBUPROFEN 600 MG TAB PO SCH ×4 (06:09→20:48)
[2022-10-16] MEDS: KETOROLAC 15 MG/ML 1 ML VIAL IVP SCH ×2 (06:19→18:22)
--- NOTE | 2022-10-16 07:12 | P.PNOBGPC ---
Subjective - Subjective Patient reports: Reports appetite normal, Reports voiding normally, Reports pain well controlled, Reports ambulating normally : doing well, in NICU Objective - Vital Signs Latest vital signs: Vital Signs Temp Pulse Resp BP Pulse Ox 10/16/22 06:42 130/86 10/16/22 04:00 66 16 128/75 98 10/16/22 00:00 98.2 F 74 16 121/76 98 10/15/22 21:21 166/98 10/15/22 20:00 97.5 F L 63 16 166/99 99 10/15/22 17:40 96.9 F L 67 16 153/81 10/15/22 17:10 73 16 147/67 10/15/22 16:40 73 14 98 10/15/22 16:25 76 14 161/92 98 10/15/22 16:10 79 14 152/88 97 10/15/22 15:55 78 16 134/86 98 10/15/22 15:48 98 10/15/22 15:40 97.9 F 91 14 127/94 98 10/15/22 07:58 96.9 F L 82 16 139/86 97 Intake and Output 10/15/22 10/16/22 10/16/22 22:59 06:59 14:59 Output Total 1419 1000 Balance -1419 -1000 Output: Urine 600 1000 Uretheral (Payne) 650 Output, Quantitative 819 Blood Loss - Exam Lungs: bilateral: normal Chest: Normal S1, Normal S2 Extremities: Present: normal Abdomen: Present: normal appearance, soft. Absent: distention, tenderness Incision: Present: normal, dry, intact Uterus: Present: normal, firm - Labs Labs: Abnormal Lab Results - Last 24 Hours (Table) 10/15/22 10/15/22 Range/Units 12:58 21:01 WBC 16.9 H (3.8-10.6) k/uL RBC 3.78 L (3.80-5.40) m/uL Neutrophils # 13.6 H (1.3-7.7) k/uL Monocytes # 1.1 H (0-1.0) k/uL AST 40 H (14-36) U/L Lactate Dehydrogenase 327 H (120-246) U/L Assessment and Plan Assessment: Postoperative day #1. Patient is resting without new complaints. Yesterday her blood pressure was significantly elevated after her section and I did check some preeclampsia labs which showed a mild elevation of one of her liver function tests but otherwise normal. Repeat laboratory work is pending this morning. I did place her on labetalol 100 mg by mouth twice a day and blood pressures are now markedly improved. She is asymptomatic. Uterus is firm nontender and her incision is intact and dry. Plan today is to repeat blood work, advance her diet, encourage ambulation, and allow her to shower. (1) 35 to 36 weeks gestation of Current Visit: Yes Status: Acute Code(s): [id number] - SNOMED Code(s): 661663572 (2) Abnormal test Current Visit: Yes Status: Acute Code(s): O28.9 - UNSP ABNORMAL FINDINGS ON SCREENING OF MOTHER SNOMED Code(s): 325541026 (3) Polyhydramnios affecting Current Visit: Yes Status: Acute Code(s): O40.9XX0 - POLYHYDRAMNIOS, UNSP TRIMESTER, NOT APPLICABLE OR UNSP SNOMED Code(s): 59385822
[2022-10-16 07:13] LABS: Basophils % (A) 0 %; Eosinophils % (A) 0 %; HCT 31.2 % (34.0-46.0); HGB 10.4 gm/dL (11.4-16.0); Lymphocytes # (A) 1.5 k/uL (1.0-4.8); Lymphocytes % (A) 7 %; MCH 33.1 pg (25.0-35.0); MCHC 33.3 g/dL (31.0-37.0); MCV 99.6 fL (80.0-100.0); Mean Platelet Volume 10.2; Monocytes # (A) 1.3 k/uL (0-1.0); Monocytes % (A) 6 %; Neutrophils # (A) 17.9 k/uL (1.3-7.7); Neutrophils % (A) 86 %; Platelet Count 173 k/uL (150-450); RBC 3.14 m/uL (3.80-5.40); RDW 13.1 % (11.5-15.5); WBC 20.9 k/uL (3.8-10.6)
[2022-10-16 07:32] LABS: ALT 23 U/L (4-34); AST 43 U/L (14-36)
[2022-10-16] MEDS: SENNOSIDES-DOCUSATE SODIUM 1 EACH TAB PO SCH ×2 (07:55→23:19)
[2022-10-16] MEDS: LABETALOL 100 MG TAB PO SCH ×2 (08:47→20:48)
[2022-10-17] MEDS: IBUPROFEN 600 MG TAB PO SCH ×3 (05:06→17:43)
--- NOTE | 2022-10-17 06:01 | P.PNOBGPC ---
Subjective - Subjective Patient reports: Reports appetite normal, Reports voiding normally, Reports pain well controlled, Reports ambulating normally : doing well, in NICU Objective - Vital Signs Latest vital signs: Vital Signs Temp Pulse Resp BP Pulse Ox 10/17/22 00:36 133/78 10/16/22 23:33 98.9 F 79 16 137/93 98 10/16/22 16:00 98.4 F 82 16 157/90 10/16/22 12:00 98.8 F 82 14 136/83 10/16/22 07:58 98.8 F 82 18 130/84 97 10/16/22 06:42 130/86 Intake and Output 10/16/22 10/16/22 10/17/22 14:59 22:59 06:59 Output Total 800 300 400 Balance -800 -300 -400 Output: Urine 800 300 400 Straight 800 Other: # Voids 0 1 1 - Exam Lungs: bilateral: normal Chest: Normal S1, Normal S2 Extremities: Present: normal Abdomen: Present: normal appearance, soft. Absent: distention, tenderness Incision: Present: normal, dry, intact Uterus: Present: normal, firm - Labs Labs: Abnormal Lab Results - Last 24 Hours (Table) 10/16/22 10/16/22 Range/Units 06:48 06:48 WBC 20.9 H (3.8-10.6) k/uL RBC 3.14 L (3.80-5.40) m/uL Hgb 10.4 L (11.4-16.0) gm/dL Hct 31.2 L (34.0-46.0) % Neutrophils # 17.9 H (1.3-7.7) k/uL Monocytes # 1.3 H (0-1.0) k/uL AST 43 H (14-36) U/L Assessment and Plan Assessment: Postoperative day #2. Patient is resting without new complaints. Vital signs are stable she's afebrile. Blood pressures are good on this labetalol dose and she is asymptomatic. CBC is pending at time of this dictation. I did place her on antibiotics due to elevated white count but there is no evidence of infection at this time. Plan today is to check a CBC and its weight counts, dominant discontinue her Ancef. Continue ambulation and routine post operative care. (1) 35 to 36 weeks gestation of Current Visit: Yes Status: Acute Code(s): [id number] - SNOMED Code(s): 189521361 (2) Abnormal test Current Visit: Yes Status: Acute Code(s): O28.9 - UNSP ABNORMAL FINDINGS ON SCREENING OF MOTHER SNOMED Code(s): 241079928 (3) Polyhydramnios affecting Current Visit: Yes Status: Acute Code(s): O40.9XX0 - POLYHYDRAMNIOS, UNSP TRIMESTER, NOT APPLICABLE OR UNSP SNOMED Code(s): 21532863
[2022-10-17 06:23] LABS: Basophils % (A) 0 %; Eosinophils # (A) 0.1 k/uL (0-0.7); Eosinophils % (A) 0 %; HGB 9.7 gm/dL (11.4-16.0); Lymphocytes # (A) 2.3 k/uL (1.0-4.8); Lymphocytes % (A) 19 %; MCHC 33.4 g/dL (31.0-37.0); MCV 98.6 fL (80.0-100.0); Monocytes # (A) 0.8 k/uL (0-1.0); Monocytes % (A) 7 %; Neutrophils # (A) 8.7 k/uL (1.3-7.7); Neutrophils % (A) 72 %; Platelet Count 134 k/uL (150-450); RBC 2.94 m/uL (3.80-5.40); WBC 12.1 k/uL (3.8-10.6)
[2022-10-17 06:45] LABS: Albumin 2.5 g/dL (3.5-5.0); Bilirubin,Unconjugated 0.1 mg/dL (0.0-1.1); Total Bilirubin 0.1 mg/dL (0.2-1.3); Total Protein 4.7 g/dL (6.3-8.2)
[2022-10-17] MEDS: ACETAMINOPHEN TAB 500 MG TAB PO SCH ×3 (07:51→21:02)
[2022-10-17] MEDS: SENNOSIDES-DOCUSATE SODIUM 1 EACH TAB PO SCH ×2 (07:52→21:03)
[2022-10-17] MEDS: LABETALOL 100 MG TAB PO SCH ×2 (07:53→21:03)
[2022-10-18] MEDS: IBUPROFEN 600 MG TAB PO SCH ×5 (02:07→23:56)
[2022-10-18] MEDS: ACETAMINOPHEN TAB 500 MG TAB PO SCH ×4 (06:35→21:35)
--- NOTE | 2022-10-18 06:50 | P.PNOBGPC ---
Subjective - Subjective Patient reports: Reports appetite normal, Reports voiding normally, Reports pain well controlled, Reports ambulating normally : doing well, in NICU Objective - Vital Signs Latest vital signs: Vital Signs Temp Pulse Resp BP Pulse Ox 10/18/22 02:00 98.0 F 72 16 140/90 96 10/17/22 21:06 98.6 F 74 16 146/89 98 10/17/22 16:35 98.1 F 104 H 16 152/80 97 10/17/22 08:00 98.5 F 111 H 16 118/78 99 Intake and Output 10/17/22 10/17/22 10/18/22 14:59 22:59 06:59 Other: # Voids 1 2 2 - Exam Lungs: bilateral: normal Chest: Normal S1, Normal S2 Extremities: Present: normal Abdomen: Present: normal appearance, soft. Absent: distention, tenderness Incision: Present: normal, dry, intact Uterus: Present: normal, firm Assessment and Plan Assessment: Postoperative day #3. Patient is resting without complaints. Vital signs are stable and she is afebrile. I did discontinue her antibiotics yesterday. Blood pressures 140s over 80s to 90s. We'll continue the labetalol 100 mg by mouth twice a day. Again she is asymptomatic. Incision is intact and dry. Plan today is to continue ambulation. I am going repeat CBC on her because her platelets were down a little bit yesterday. Continue routine postoperative care otherwise. (1) 35 to 36 weeks gestation of Current Visit: Yes Status: Acute Code(s): [id number] - SNOMED Code(s): 349661586 (2) Abnormal test Current Visit: Yes Status: Acute Code(s): O28.9 - UNSP ABNORMAL FINDINGS ON SCREENING OF MOTHER SNOMED Code(s): 481267640 (3) Polyhydramnios affecting Current Visit: Yes Status: Acute Code(s): O40.9XX0 - POLYHYDRAMNIOS, UNSP TRIMESTER, NOT APPLICABLE OR UNSP SNOMED Code(s): 65693504
[2022-10-18 07:35] LABS: Basophils % (A) 0 %; Eosinophils # (A) 0.2 k/uL (0-0.7); Eosinophils % (A) 2 %; HCT 31.8 % (34.0-46.0); HGB 10.4 gm/dL (11.4-16.0); Lymphocytes # (A) 2.3 k/uL (1.0-4.8); Lymphocytes % (A) 18 %; MCHC 32.6 g/dL (31.0-37.0); Mean Platelet Volume 9.7; Monocytes # (A) 0.6 k/uL (0-1.0); Monocytes % (A) 4 %; Neutrophils # (A) 9.4 k/uL (1.3-7.7); Neutrophils % (A) 74 %; Platelet Count 183 k/uL (150-450); RBC 3.24 m/uL (3.80-5.40); RDW 13.4 % (11.5-15.5); WBC 12.7 k/uL (3.8-10.6)
[2022-10-18] MEDS: LABETALOL 100 MG TAB PO SCH ×2 (08:53→21:35)
[2022-10-18] MEDS: SENNOSIDES-DOCUSATE SODIUM 1 EACH TAB PO SCH ×2 (09:03→21:35)
[2022-10-19] MEDS: ACETAMINOPHEN TAB 500 MG TAB PO SCH ×2 (03:28→10:27)
--- NOTE | 2022-10-19 06:56 | P.PNOBGPC ---
Subjective - Subjective Patient reports: Reports appetite normal, Reports voiding normally, Reports pain well controlled, Reports ambulating normally : doing well, in NICU Objective - Vital Signs Latest vital signs: Vital Signs Temp Pulse Resp BP Pulse Ox 10/18/22 23:58 98.1 F 72 17 139/88 98 10/18/22 21:37 98.2 F 87 16 147/89 97 10/18/22 15:58 98.6 F 81 14 146/83 10/18/22 07:45 98.5 F 81 14 138/90 Intake and Output 10/18/22 10/18/22 10/19/22 14:59 22:59 06:59 Intake Total 480 480 Balance 480 480 Intake: Oral 480 480 Other: # Voids 1 2 - Exam Lungs: bilateral: normal Chest: Normal S1, Normal S2 Extremities: Present: normal Abdomen: Present: normal appearance, soft. Absent: distention, tenderness Incision: Present: normal, dry, intact Uterus: Present: normal, firm - Labs Labs: Abnormal Lab Results - Last 24 Hours (Table) 10/18/22 Range/Units 07:23 WBC 12.7 H (3.8-10.6) k/uL RBC 3.24 L (3.80-5.40) m/uL Hgb 10.4 L (11.4-16.0) gm/dL Hct 31.8 L (34.0-46.0) % Neutrophils # 9.4 H (1.3-7.7) k/uL Assessment and Plan Assessment: Postoperative day #4. Patient is resting without new complaints. Vital signs are stable she is afebrile. Blood pressures are still mildly elevated but controlled well on labetalol 100 mg by mouth twice a day. Uterus is firm nontender her incision is intact and dry. Repeat CBC today is normal. Platelets are normal. Plan today is to continue routine care and discharge home later today. (1) 35 to 36 weeks gestation of Current Visit: Yes Status: Acute Code(s): [id number] - SNOMED Code(s): 726549759 (2) Abnormal test Current Visit: Yes Status: Acute Code(s): O28.9 - UNSP ABNORMAL FINDINGS ON SCREENING OF MOTHER SNOMED Code(s): 783615018 (3) Polyhydramnios affecting Current Visit: Yes Status: Acute Code(s): O40.9XX0 - POLYHYDRAMNIOS, UNSP TRIMESTER, NOT APPLICABLE OR UNSP SNOMED Code(s): 24756082
--- NOTE | 2022-10-19 07:04 | P.DS ---
Providers Date of admission: 10/14/22 12:53 Expected date of discharge: 10/19/22 Attending physician: Mao Prieto Primary care physician: Stated None - Discharge Diagnosis(es) (1) 35 to 36 weeks gestation of Current Visit: Yes Status: Acute (2) Abnormal test Current Visit: Yes Status: Acute (3) Polyhydramnios affecting Current Visit: Yes Status: Acute Hospital Course: Please see dictated H&P for intimate details of this patient's admission. Brief summary this is a pleasant 31-year-old 1 para 0 female who is admitted at 36 weeks with equivocal antepartum testing. Patient subsequently underwent induction and then primary section for viable male infant. Please see dictated operative note. Postoperative patient did develop hypertension and did have preeclampsia labs which were negative however was placed on labetalol 100 mg by mouth twice a day. Patient also was given some antibiotics for a post operative fever which resolved. On post operative day #4 patient was felt to be stable for discharge home follow up with me in 1 week. Procedures: Induction of labor and primary low transverse section Patient Condition at Discharge: Good Plan - Discharge Summary Discharge Rx Participant: No New Discharge Prescriptions: New Ibuprofen [Motrin] 600 mg PO Q6H #40 tab Labetalol [Trandate] 100 mg PO BID #60 tab No Action Doxylamine Succinate [Unisom] 1 tablet PO DAILY Vit No.179/Iron/Folic [ Tablet] 1 tablet PO DAILY Discharge Medication List Doxylamine Succinate [Unisom] 1 tablet PO DAILY 07/29/22 [History] Vit No.179/Iron/Folic [ Tablet] 1 tablet PO DAILY 07/29/22 [History] Ibuprofen [Motrin] 600 mg PO Q6H #40 tab 10/19/22 [Rx] Labetalol [Trandate] 100 mg PO BID #60 tab 10/19/22 [Rx] Follow up Appointment(s)/Referral(s): Mao Prieto MD [STAFF PHYSICIAN] - 1 Week (Postoperative appointment on 10/26/2022 @9:00 Am Also see me for a check on 11/29/2022 @11:15) Patient Instructions/Handouts: (DC), Hypertension During (DC) Activity/Diet/Wound Care/Special Instructions: No heavy lifting or strenuous activity for 6 weeks. Please call if any fever, chills, excessive vaginal bleeding, and/or abdominal pain. Please take her blood pressure medication as directed. Discharge Disposition: HOME SELF-CARE
[2022-10-19] MEDS: IBUPROFEN 600 MG TAB PO SCH (07:47)
[2022-10-19 07:59] VITALS: BP 154/96; PULSE 88; RESP 16; TEMP 97.7
--- NOTE | 2022-10-19 09:35 | P.PN ---
Progress Note - Text Progress Note Date: 10/19/22 (5178) Anesthesia Postop day 1 Subjective: Status Post section with Duramorph. Patient in bathroom. interviewed. Doing well without complaint. VAS rest able overnight. No nausea or vomiting. Mild pruritus tolerable.. . Gross lower extremity strength intact. +ambulation. Without apparent anesthetic complications. Assessment: Status post with Duramorph postop day 1 Plan: Continue current care with your medical management. Anticipated and the Duramorph section around time today. You may see increased pain needs around this time.
[2022-10-19] MEDS: LABETALOL 100 MG TAB PO SCH (10:25)
[2022-10-19] MEDS: SENNOSIDES-DOCUSATE SODIUM 1 EACH TAB PO SCH (10:25)
== END 2022-10-19 14:00 | disposition home or self-care (01) | DRG 786 ==
LOC: FBPOP 11:01 → 4FBP 12:53 → OBSVTOIN 12:53
PROVIDERS: ADMIT Obstetrics & Gynecology; ATTEND Obstetrics & Gynecology
PROC: 10D00Z1 Extraction of Products of Conception, Low, Open Approach (ICD-10-PCS; principal; 2022-10-14)
PROC: 4A0HXCZ Measurement of Products of Conception, Cardiac Rate, External Approach (ICD-10-PCS; 2022-10-14)
PROC: 3E033VJ Introduction of Other Hormone into Peripheral Vein, Percutaneous Approach (ICD-10-PCS; 2022-10-14)
PROC: BY4FZZZ Ultrasonography of Third Trimester, Single Fetus (ICD-10-PCS; 2022-10-14)
PROC: 10907ZC Drainage of Amniotic Fluid, Therapeutic from Products of Conception, Via Natural or Artificial Opening (ICD-10-PCS; 2022-10-14)
DX: O76 Abnormality in fetal heart rate and rhythm complicating labor and delivery (principal); O60.14X0 Preterm labor third trimester with preterm delivery third trimester, not applicable or unspecified; O40.3XX0 Polyhydramnios, third trimester, not applicable or unspecified; L29.9 Pruritus, unspecified; O16.5 Unspecified maternal hypertension, complicating the puerperium; O99.73 Diseases of the skin and subcutaneous tissue complicating the puerperium; F41.9 Anxiety disorder, unspecified; O99.344 Other mental disorders complicating childbirth; Z14.8 Genetic carrier of other disease; Z37.0 Single live birth; Z3A.36 36 weeks gestation of pregnancy
CPT/HCPCS: 59025; 76819; 80076; 83615; 84450; 84460; 84550; 85025; 86850; 86900; 86901; 88307; 99213